=== PATIENT | male | born 1970 | race African-American/Black ===

== ENCOUNTER 2020-08-09 17:08 | Outpatient (REF) | payer MEDICAID, SELFPAY | END 2020-08-09 17:09 | disposition home or self-care (01) | LOC: HO.LAB 17:08 | PROVIDERS: Visit Provider Internal Medicine | DX: Z20.828 Contact with and (suspected) exposure to other viral communicable diseases (principal) | CPT/HCPCS: C9803; U0003 ==

== ENCOUNTER 2022-07-08 18:57 | Emergency (ER) | payer MEDICAID, SELFPAY ==
[2022-07-08 19:04] VITALS: BP 152/92; PULSE 90; RESP 16; TEMP 37; O2SAT 99; BMI 24.0
[2022-07-08 22:20] VITALS: BP 173/106; PULSE 77; RESP 20; TEMP 36.9; O2SAT 97
[2022-07-08] MEDS: Ketorolac Tromethamine 30 MG/ML VIAL IM (22:20)
[2022-07-08] MEDS: predniSONE 20 MG TABLET 60 MG PO (22:20)
--- NOTE | 2022-07-08 22:22 | ED.GENADULT ---
HPI - General Adult General Chief complaint: Back Pain/Injury Stated complaint: lower back pain Time Seen by Provider: 07/08/22 21:29 Source: patient Mode of arrival: ambulatory Limitations: no limitations History of Present Illness HPI narrative: 52-year-old male presents to ED for lower back pain radiating down left buttock left leg. Patient states pain on range of motion. Patient denies any trauma, nausea, vomiting, flank pain, abdominal pain, dysuria, hematuria from testicular pain, penile discharge, or penile lesions. Related Data Previous Rx's Medication Instructions Recorded cyclobenzaprine 10 mg tablet 10 mg PO TID PRN muscle spasm 7 07/08/22 days #21 tabs ketorolac 10 mg tablet 10 mg PO QID PRN pain 5 days #20 07/08/22 tabs prednisone 20 mg tablet 40 mg PO DAILY 5 days #10 tabs 07/08/22 Allergies Allergy/AdvReac Type Severity Reaction Status Date / Time No Known Allergies Allergy Verified 07/08/22 19:04 Review of Systems Review of Systems: Low back pain Yes all other systems are reviewed and are negative FOR[facility]LY [facility] Social History Social History Advance Directives: No Advance Directives Information Provided: No Physical Exam ED Vital Signs: Vital Signs - 24 hr 07/08/22 19:04 07/08/22 22:20 07/08/22 22:50 Temperature 98.6 F 98.5 F Pulse Rate 90 77 81 Respiratory Rate 16 20 12 Blood Pressure 152/92 H 173/106 H 160/97 H Pulse Oximetry 99 97 Oxygen Delivery Method Room Air Room Air BMI result Body Mass Index 24.0 Const General: cooperative, healthy appearing, comfortable, no acute distress, well developed, alert, awake and Physically active Orientation/consciousness: patient oriented x3 HENMT Head: Yes normal to inspection, Yes No palpable skull fracture present, Yes normocephalic, Yes atraumatic and No abrasion Eyes General: appearance normal, both eyes and all related structures Neck Neck: Yes normal visual inspection, Yes full ROM, Yes no lymphadenopathy, Yes no meningeal signs, Yes trachea midline, Yes supple, No anterior neck swelling and No tender Chest Chest palpation & inspection: normal inspection of the chest and normal palpation of entire chest wall Resp Effort & Inspection: normal respiratory effort and able to speak in complete sentences Cardio Jugular venous distension: no JVD Heart sounds: S1 normal heart sound present and S2 normal heart sound present GI Inspection: Yes normal to inspection and No abdominal wall ecchymosis Palpation (GI): Soft to palpation, not firm, nontender, no guarding and not rigid General: No CVA tenderness and Yes no CVA tenderness Back/Spine/Pelvis Back: no CVA tenderness, No CVA tenderness and No back tenderness Back/spine/pelvis image: 1. Tenderness on palpation. Negative for any gluteal abscess or ecchymosis or cellulitis. Pain radiating down left leg Skin General skin exam: no rashes or lesions noted and elasticity normal Neuro General: patient oriented x3, gait normal, tone normal, no meningeal signs and CN's II-XI intact bilaterally Cranial nerves: Yes CN's II-XII intact bilaterally Extrem General: Yes normal to inspection and Yes full ROM Psych Appearance: grossly normal, well kempt and not disheveled Course Course Course Narrative: Back pain. Reevaluation(s) Reevaluation #1: Negative for any spine tenderness. Has a sciatica will discharge with pain meds. Blood pressure elevated patient did not takes hypertensive meds today. patient informed he should be compliant with hypertensive meds to prevent stroke, VA, and kidney failure. Negative for any neuro deficits patient is safe for discharge Time: 22:32 Medical Decision Making MDM Narrative Medical decision making narrative: Sciatica Discharge Plan Discharge Clinical Impression: Sciatica Patient Disposition: Home, Self-Care Instructions: Sciatica (ED), Back Pain (ED) Additional Instructions: Return to ED for any urinary/bowel incontinence, abdominal pain, nausea, vomiting, fever, chills, severe back pain, inability to walk, or any other concerning symptoms. Please follow-up with primary care provider. Prescriptions: New ketorolac 10 mg tablet 10 mg PO QID PRN (Reason: pain) 5 Days Qty: 20 0RF Rx Instructions: received 30MG Im in the ED prednisone 20 mg tablet 40 mg PO DAILY 5 Days Qty: 10 0RF cyclobenzaprine 10 mg tablet 10 mg PO TID PRN (Reason: muscle spasm) 7 Days Qty: 21 0RF Rx Instructions: side effect is drowsiness. Do not take at work or while driving. Stand Alone Forms: Work/School Release Interventions: ED Discharge Assessment Last Done: 07/08/22 22:51 Discharge Date/Time: 07/08/22 22:52 Print Language: Romanian
--- NOTE | 2022-07-08 22:26 | PC.NURSE ---
Pt aox4. Breaths are even and unlabored. Elevated BP noted 180/110. Pt reports not taking BP medication today. Reports no other symptoms besides low back pain, 07/01. No apparent distress noted. MLP aware.
[2022-07-08] MEDS: lisinopriL 5 MG TABLET PO (22:30)
[2022-07-08 22:50] VITALS: BP 160/97; PULSE 81; RESP 12
--- NOTE | 2022-07-08 22:50 | PC.NURSE ---
Pt aox4. Breaths are even and unlabored. Improved BP: 160/97 after being medicated. No apparent distress noted. Reports low back pain, 07/01. Discharge instructions provided. Pt verbalizes understanding.
== END 2022-07-08 22:52 | disposition home or self-care (01) ==
PROVIDERS: Emergency Provider Internal Medicine
DX: M54.42 Lumbago with sciatica, left side (principal); I10 Essential (primary) hypertension; Z79.899 Other long term (current) drug therapy
CPT/HCPCS: 96372; 99284; J1885

== ENCOUNTER 2023-06-16 08:48 | Outpatient (REF) | payer MEDICAID, SELFPAY ==
[2023-06-16 12:15] LABS: Estimated Average Glucose 88 mg/dL; Hemoglobin A1c % 4.7 % (<6.0)
[2023-06-16 12:33] LABS: Cholesterol 176 mg/dL (<200); HDL Cholesterol 39 mg/dL (>40); LDL Cholesterol Calculated 118 mg/dL (<100); Triglycerides 95 mg/dL (<150)
[2023-06-16 12:42] LABS: Basophils Percent Auto 0.7 % (0-2); Eosinophils Absolute Auto 0.1 X10*3/uL (0.0-0.4); Eosinophils Percent Auto 2.2 % (0-4); Hematocrit 44.6 % (42.0-52.0); Hemoglobin 14.5 g/dl (14.0-18.0); Imm Gran Abs Auto 0.02 X10*3/uL (0.00-0.03); Imm Gran Pct Auto 0.3 % (0.0-0.4); Lymphocytes Absolute Auto 1.9 X10*3/uL (1.2-4.9); Lymphocytes Percent Auto 31.3 % (20-40); MANUAL DIFF FLAG SCAN; Mean Corpuscular HGB Conc 32.5 g/dl (31.0-36.0); Mean Corpuscular Hemoglobin 31.1 pg (27.0-33.0); Mean Corpuscular Volume 95.7 fL (80.0-98.0); Monocytes Absolute Auto 0.6 X10*3/uL (0.1-1.2); Monocytes Percent Auto 9.5 % (2-11); Neutrophils Absolute Auto 3.4 x10*3/uL (2.0-8.3); PLT CLUMP 1; Red Blood Count 4.66 X10*6/uL (4.60-5.80); Red Cell Distribution Width 12.1 % (11.0-16.0); SCAN SMEAR FLAG 1
[2023-06-16 12:58] LABS: Alanine Aminotransferase 22 U/L (0-40); Albumin Level 4.4 g/dL (3.5-5.0); Alkaline Phosphatase 58 U/L (39-117); Anion Gap 16 (12-20); Aspartate Amino Transferase 29 U/L (5-37); Bilirubin Total 0.5 mg/dL (0.0-1.0); Blood Urea Nitrogen 12 mg/dL (9-16); Calcium 9.6 mg/dL (8.4-10.2); Carbon Dioxide 23 mmol/L (22-29); Chloride 105 mmol/L (96-108); Estimated Glomerular Filt Rate > 60; Glucose Random 97 mg/dL (60-115); Potassium 3.8 mmol/L (3.3-5.1); Sodium 140 mmol/L (135-145); Total Protein 8.2 g/dL (6.5-8.0)
[2023-06-16 13:01] LABS: TSH reflex Free T4 2.03 uIU/mL (0.32-4.0); Vitamin D 25-OH Total 38.1 ng/mL (>30)
[2023-06-16 13:37] LABS: Platelet Count 225 X10*3/uL (160-400)
[2023-06-16 13:38] LABS: SLIDE REVIEW VERIFIED
[2023-06-16 13:52] LABS: Reflex LDLD? No
[2023-06-16 14:20] LABS: CT PCR NOT DETECTED (Not Detect.); NG PCR NOT DETECTED (Not Detect.)
[2023-06-17 03:44] LABS: Syphilis Screen Nonreactive (Nonreactive)
[2023-06-17 05:30] LABS: HBS Num1 4.36 mIU/mL (0-7.99); ~HepC Num1 0.36 S/CO (0.00-0.79); ~Hepatitis B Surface Antibody NONREACTIVE (Nonreactive); ~Hepatitis C Antibody Nonreactive (Nonreactive)
[2023-06-17 10:09] LABS: Absolute CD3 Count 1205 cells/uL (840-3060); Absolute CD4 Count 436 cells/uL (490-1740); Absolute CD8 Count 758 cells/uL (180-1170); Absolute Lymphocytes 2155 cells/uL (850-3900); CD4 CD8 Ratio 0.58 (0.86-5.00); Percent CD3 Cells 56 % (57-85); Percent CD4 Cells 20 % (30-61); Percent CD8 Cells 35 % (12-42)
[2023-06-17 13:19] LABS: HIV RNA PCR Qn Copies 90 copies/mL (NOT DETECTED); HIV RNA PCR Qn Log Copies 1.95 (NOT DETECTED)
[2023-06-18 19:38] LABS: TS Negative Control Passed; TS Panel A 1; TS Panel B 4; TS Positive Control Passed; TSpotTB Negative (Negative)
== END 2023-06-16 08:49 | disposition home or self-care (01) ==
LOC: HO.HHCL 08:48
PROVIDERS: Visit Provider Internal Medicine
DX: Z11.1 Encounter for screening for respiratory tuberculosis (principal); Z11.3 Encounter for screening for infections with a predominantly sexual mode of transmission; B20 Human immunodeficiency virus [HIV] disease
CPT/HCPCS: 0353U; 80053; 80061; 82306; 83036; 84443; 85025; 86359; 86360; 86481; 86706; 86780; 86803; 87536

== ENCOUNTER 2023-12-09 09:07 | Outpatient (REF) | payer MEDICAID, SELFPAY ==
[2023-12-09 11:25] LABS: MANUAL DIFF FLAG NO
[2023-12-09 11:35] LABS: Basophils Percent Auto 0.7 % (0-2); Eosinophils Absolute Auto 0.1 X10*3/uL (0.0-0.4); Eosinophils Percent Auto 1.4 % (0-4); Hematocrit 48.3 % (42.0-52.0); Hemoglobin 15.7 g/dl (14.0-18.0); Imm Gran Abs Auto 0.02 X10*3/uL (0.00-0.03); Imm Gran Pct Auto 0.4 % (0.0-0.4); Lymphocytes Absolute Auto 1.8 X10*3/uL (1.2-4.9); Lymphocytes Percent Auto 31.2 % (20-40); Mean Corpuscular HGB Conc 32.5 g/dl (31.0-36.0); Mean Corpuscular Hemoglobin 30.9 pg (27.0-33.0); Mean Corpuscular Volume 95.1 fL (80.0-98.0); Mean Platelet Volume 10.8 fL (9.4-12.4); Monocytes Absolute Auto 0.6 X10*3/uL (0.1-1.2); Neutrophils Absolute Auto 3.2 x10*3/uL (2.0-8.3); Neutrophils Percent Auto 56.3 % (45-73); Platelet Count 266 X10*3/uL (160-400); Red Blood Count 5.08 X10*6/uL (4.60-5.80); Red Cell Distribution Width 11.7 % (11.0-16.0); White Blood Count 5.7 X10*3/uL (4.8-10.8)
[2023-12-09 12:12] LABS: Alanine Aminotransferase 23 U/L (0-40); Albumin Level 4.7 g/dL (3.5-5.0); Alkaline Phosphatase 66 U/L (39-117); Anion Gap 13 (12-20); Aspartate Amino Transferase 24 U/L (5-37); Bilirubin Total 0.6 mg/dL (0.0-1.0); Blood Urea Nitrogen 14 mg/dL (9-16); Calcium 10.2 mg/dL (8.4-10.2); Carbon Dioxide 29 mmol/L (22-29); Chloride 102 mmol/L (96-108); Estimated Glomerular Filt Rate > 60; Glucose Random 95 mg/dL (60-115); Potassium 4.5 mmol/L (3.3-5.1); Sodium 139 mmol/L (135-145); Total Protein 9.4 g/dL (6.5-8.0)
[2023-12-10 12:54] LABS: Absolute CD3 Count 967 cells/uL (840-3060); Absolute CD4 Count 356 cells/uL (490-1740); Absolute CD8 Count 604 cells/uL (180-1170); Absolute Lymphocytes 1840 cells/uL (850-3900); CD4 CD8 Ratio 0.59 (0.86-5.00); Percent CD3 Cells 53 % (57-85); Percent CD4 Cells 19 % (30-61); Percent CD8 Cells 33 % (12-42)
[2023-12-13 07:09] LABS: HIV RNA PCR Qn Copies 117 copies/mL (NOT DETECTED); HIV RNA PCR Qn Log Copies 2.07 (NOT DETECTED)
== END 2023-12-09 09:08 | disposition home or self-care (01) ==
LOC: HO.HHCL 09:07
PROVIDERS: Visit Provider Internal Medicine
DX: B20 Human immunodeficiency virus [HIV] disease (principal)
CPT/HCPCS: 36415; 80053; 85025; 86359; 86360; 87536

== ENCOUNTER 2024-07-15 08:14 | Outpatient (REF) | payer MEDICAID, SELFPAY ==
[2024-07-15 11:12] LABS: Hematocrit 40.7 % (42.0-52.0); Hemoglobin 13.6 g/dl (14.0-18.0); Mean Corpuscular HGB Conc 33.4 g/dl (31.0-36.0); Mean Corpuscular Hemoglobin 31.6 pg (27.0-33.0); Mean Corpuscular Volume 94.4 fL (80.0-98.0); Mean Platelet Volume 11.2 fL (9.4-12.4); Platelet Count 232 X10*3/uL (160-400); Red Blood Count 4.31 X10*6/uL (4.60-5.80); Red Cell Distribution Width 12.2 % (11.0-16.0); White Blood Count 7.1 X10*3/uL (4.8-10.8)
[2024-07-15 11:29] LABS: Alanine Aminotransferase 27 U/L (0-40); Albumin Level 4.2 g/dL (3.5-5.0); Alkaline Phosphatase 55 U/L (39-117); Anion Gap 12 (12-20); Aspartate Amino Transferase 30 U/L (5-37); Bilirubin Direct 0.2 mg/dL (0.0-0.5); Bilirubin Total 0.9 mg/dL (0.0-1.0); Blood Urea Nitrogen 14 mg/dL (9-16); Calcium 9.4 mg/dL (8.4-10.2); Carbon Dioxide 27 mmol/L (22-29); Chloride 105 mmol/L (96-108); Cholesterol 208 mg/dL (<200); Estimated Glomerular Filt Rate > 60; Glucose Random 101 mg/dL (60-115); HDL Cholesterol 39 mg/dL (>40); LDL Cholesterol Calculated 139 mg/dL (<100); Potassium 4.4 mmol/L (3.3-5.1); Sodium 140 mmol/L (135-145); Triglycerides 152 mg/dL (<150)
[2024-07-15 11:36] LABS: Estimated Average Glucose 94 mg/dL; Hemoglobin A1C 97.8067 umol/L; Hemoglobin A1c % 4.9 % (<6.0)
[2024-07-15 11:45] LABS: Hepatitis A Antibody IgG Nonreactive (Nonreactive); ~Hepatitis A Antibody IgG 0.61 S/CO (0.00-0.99)
[2024-07-15 11:51] LABS: Creatinine Urine 187.61 mg/dL; Microalbum/Creatinine Ratio Ur 4.2 ug/mg cr (<30)
[2024-07-15 11:52] LABS: Free T4 (Free Thyroxine) 1.03 ng/dL (0.71-1.85); HBS Num1 4.35 mIU/mL (0-7.99); HBc Num1 0.25 S/CO (0.00-0.79); HBsAGNum1 0.32 S/CO (0.00-0.99); Hepatitis B Core Antibody Nonreactive (Nonreactive); Hepatitis B Surface Antigen Negative (Negative); Thyroid Stimulating Hormone 2.63 uIU/mL (0.32-4.0); Vitamin D 25-OH Total 39.3 ng/mL (>30); ~HepC Num1 0.43 S/CO (0.00-0.79); ~Hepatitis B Surface Antibody NONREACTIVE (Nonreactive); ~Hepatitis C Antibody Nonreactive (Nonreactive)
[2024-07-15 14:46] LABS: CT PCR NOT DETECTED (Not Detect.); NG PCR NOT DETECTED (Not Detect.)
[2024-07-16 14:08] LABS: HIV RNA PCR Qn Copies 182 copies/mL (NOT DETECTED); HIV RNA PCR Qn Log Copies 2.26 (NOT DETECTED)
[2024-07-16 20:13] LABS: RPR Rapid Plasma Reagin NON-REACTIVE (NON-REACTIVE)
[2024-07-18 03:24] LABS: TS Negative Control Passed; TS Panel A 2; TS Panel B 1; TS Positive Control Passed; TSpotTB Negative (Negative)
[2024-07-20 15:13] LABS: Absolute CD4 Count 376 cells/uL (490-1740); Absolute CD8 Count 513 cells/uL (180-1170); Absolute Lymphocytes 1601 cells/uL (850-3900); CD4 CD8 Ratio 0.73 (0.86-5.00); Percent CD4 Cells 24 % (30-61); Percent CD8 Cells 32 % (12-42)
== END 2024-07-15 08:15 | disposition home or self-care (01) ==
LOC: HO.HHCL 08:14
PROVIDERS: Visit Provider Family Medicine
DX: I10 Essential (primary) hypertension (principal); B20 Human immunodeficiency virus [HIV] disease
CPT/HCPCS: 36415; 80048; 80061; 80076; 82043; 82306; 82570; 83036; 84439; 84443; 85027; 86360; 86481; 86592; 86704; 86706; 86708; 86803; 87340; 87491; 87536; 87591

== ENCOUNTER 2024-08-04 13:52 | Outpatient (REF) | payer MEDICAID, SELFPAY ==
[2024-08-04 16:24] LABS: MANUAL DIFF FLAG NO
[2024-08-04 16:35] LABS: Basophils Percent Auto 0.6 % (0-2); Eosinophils Absolute Auto 0.1 X10*3/uL (0.0-0.4); Eosinophils Percent Auto 1.4 % (0-4); Hematocrit 42.7 % (42.0-52.0); Hemoglobin 13.8 g/dl (14.0-18.0); Imm Gran Abs Auto 0.03 X10*3/uL (0.00-0.03); Imm Gran Pct Auto 0.5 % (0.0-0.4); Lymphocytes Absolute Auto 1.8 X10*3/uL (1.2-4.9); Mean Corpuscular HGB Conc 32.3 g/dl (31.0-36.0); Mean Corpuscular Hemoglobin 30.9 pg (27.0-33.0); Mean Corpuscular Volume 95.7 fL (80.0-98.0); Monocytes Absolute Auto 0.6 X10*3/uL (0.1-1.2); Monocytes Percent Auto 8.6 % (2-11); Neutrophils Percent Auto 60.9 % (45-73); Platelet Count 252 X10*3/uL (160-400); Red Blood Count 4.46 X10*6/uL (4.60-5.80); Red Cell Distribution Width 12.2 % (11.0-16.0); White Blood Count 6.5 X10*3/uL (4.8-10.8)
[2024-08-04 17:09] LABS: Iron 77 mcg/dL (45-160); Percent Iron Saturation 29 % (15-50); Total Iron Binding Capacity 270 mcg/dL (228-428); Unsaturated Iron Binding 193 ug/dL
[2024-08-04 17:19] LABS: Ferritin 65 ng/mL (20-250)
[2024-08-04 17:32] LABS: Folate 11.9 ng/mL (> or = 4.0); Vitamin B12 484 pg/mL (200-900)
[2024-08-06 08:58] LABS: HIV RNA PCR Qn Copies 35 copies/mL (NOT DETECTED); HIV RNA PCR Qn Log Copies 1.54 (NOT DETECTED)
[2024-08-09 21:25] LABS: Absolute CD4 Count 425 cells/uL (490-1740); Absolute CD8 Count 677 cells/uL (180-1170); Absolute Lymphocytes 1857 cells/uL (850-3900); CD4 CD8 Ratio 0.63 (0.86-5.00); Percent CD4 Cells 23 % (30-61); Percent CD8 Cells 36 % (12-42)
== END 2024-08-04 13:53 | disposition home or self-care (01) ==
LOC: HO.HHCL 13:52
PROVIDERS: Visit Provider Family Medicine
DX: D64.9 Anemia, unspecified (principal)
CPT/HCPCS: 36415; 82607; 82728; 82746; 83540; 85025; 86360; 87536

== ENCOUNTER 2025-01-07 08:04 | Outpatient (REF) | payer MEDICAID, SELFPAY ==
[2025-01-07 11:22] LABS: MANUAL DIFF FLAG NO
[2025-01-07 11:31] LABS: Basophils Absolute Auto 0.1 X10*3/uL (0.0-0.2); Basophils Percent Auto 0.9 % (0-2); Eosinophils Absolute Auto 0.5 X10*3/uL (0.0-0.4); Eosinophils Percent Auto 7.7 % (0-4); Hematocrit 40.7 % (42.0-52.0); Hemoglobin 13.3 g/dl (14.0-18.0); Imm Gran Abs Auto 0.02 X10*3/uL (0.00-0.03); Imm Gran Pct Auto 0.3 % (0.0-0.4); Lymphocytes Percent Auto 33.4 % (20-40); Mean Corpuscular HGB Conc 32.7 g/dl (31.0-36.0); Mean Corpuscular Hemoglobin 30.6 pg (27.0-33.0); Mean Corpuscular Volume 93.6 fL (80.0-98.0); Mean Platelet Volume 10.9 fL (9.4-12.4); Monocytes Absolute Auto 0.6 X10*3/uL (0.1-1.2); Monocytes Percent Auto 10.8 % (2-11); Neutrophils Absolute Auto 2.7 x10*3/uL (2.0-8.3); Neutrophils Percent Auto 46.9 % (45-73); Platelet Count 280 X10*3/uL (160-400); Red Blood Count 4.35 X10*6/uL (4.60-5.80); Red Cell Distribution Width 12.4 % (11.0-16.0); White Blood Count 5.8 X10*3/uL (4.8-10.8)
[2025-01-07 11:59] LABS: Prostate Specific Antigen 3.41 ng/mL (<0.05-4.0)
[2025-01-07 12:00] LABS: Alanine Aminotransferase 22 U/L (0-40); Albumin Level 4.2 g/dL (3.5-5.0); Anion Gap 10 (12-20); Aspartate Amino Transferase 30 U/L (5-37); Bilirubin Total 0.7 mg/dL (0.0-1.0); Blood Urea Nitrogen 13 mg/dL (9-16); Calcium 9.3 mg/dL (8.4-10.2); Carbon Dioxide 28 mmol/L (22-29); Chloride 105 mmol/L (96-108); Estimated Glomerular Filt Rate > 60; Glucose Random 87 mg/dL (60-115); Sodium 139 mmol/L (135-145)
[2025-01-07 19:45] LABS: Alkaline Phosphatase 53 U/L (39-117)
[2025-01-08 20:18] LABS: HIV RNA PCR Qn Copies 697 copies/mL (NOT DETECTED); HIV RNA PCR Qn Log Copies 2.84 (NOT DETECTED)
[2025-01-12 20:52] LABS: Absolute CD3 Count 1164 cells/uL (840-3060); Absolute CD4 Count 474 cells/uL (490-1740); Absolute CD8 Count 714 cells/uL (180-1170); Absolute Lymphocytes 2044 cells/uL (850-3900); CD4 CD8 Ratio 0.66 (0.86-5.00); Percent CD3 Cells 57 % (57-85); Percent CD4 Cells 23 % (30-61); Percent CD8 Cells 35 % (12-42)
== END 2025-01-07 08:05 | disposition home or self-care (01) ==
LOC: HO.HHCL 08:04
PROVIDERS: Visit Provider Internal Medicine
DX: B20 Human immunodeficiency virus [HIV] disease (principal)
CPT/HCPCS: 36415; 80053; 84153; 85025; 86359; 86360; 87536

== ENCOUNTER 2025-02-10 15:04 | Outpatient (REF) | payer MEDICAID, SELFPAY ==
[2025-02-12 14:13] LABS: HIV RNA PCR Qn Copies 161 copies/mL (NOT DETECTED); HIV RNA PCR Qn Log Copies 2.21 (NOT DETECTED)
[2025-02-18 17:24] LABS: HIV 1 Integrase Proviral DNA DETECTED; HIV 1 PR RT Proviral DNA DETECTED
== END 2025-02-10 15:05 | disposition home or self-care (01) ==
LOC: HO.HHCL 15:04
PROVIDERS: Visit Provider Internal Medicine
DX: B20 Human immunodeficiency virus [HIV] disease (principal)
CPT/HCPCS: 36415; 87536; 87900; 87901; 87906

== ENCOUNTER 2025-06-20 08:07 | Outpatient (REF) | payer OTHER, SELFPAY ==
[2025-06-20 11:35] LABS: Hematocrit 42.2 % (42.0-52.0); Hemoglobin 13.8 g/dl (14.0-18.0); Mean Corpuscular HGB Conc 32.7 g/dl (31.0-36.0); Mean Corpuscular Hemoglobin 31.1 pg (27.0-33.0); Mean Corpuscular Volume 95.0 fL (80.0-98.0); NRBC Abs Auto 0.000 X10*3/uL (0.0-0.012); NRBC Pct Auto 0.0 /100WBC (0.0-0.2); Platelet Count 238 X10*3/uL (160-400); Red Blood Count 4.44 X10*6/uL (4.60-5.80); White Blood Count 5.9 X10*3/uL (4.8-10.8)
[2025-06-20 11:59] LABS: Alanine Aminotransferase 30 U/L (0-40); Albumin Level 4.6 g/dL (3.5-5.0); Alkaline Phosphatase 60 U/L (39-117); Anion Gap 12 (12-20); Aspartate Amino Transferase 31 U/L (5-37); Blood Urea Nitrogen 13 mg/dL (9-16); Calcium 9.1 mg/dL (8.4-10.2); Carbon Dioxide 27 mmol/L (22-29); Chloride 106 mmol/L (96-108); Cholesterol 236 mg/dL (<200); Estimated Glomerular Filt Rate > 60; HDL Cholesterol 35 mg/dL (>40); Potassium 3.9 mmol/L (3.3-5.1); Sodium 141 mmol/L (135-145); Total Protein 8.3 g/dL (6.5-8.0); Triglycerides 132 mg/dL (<150)
[2025-06-20 12:04] LABS: Free T4 (Free Thyroxine) 1.17 ng/dL (0.71-1.85); Thyroid Stimulating Hormone 2.20 uIU/mL (0.32-4.0)
[2025-06-20 12:20] LABS: HBS Num1 2.73 mIU/mL (0-7.99); HBc Num1 0.18 S/CO (0.00-0.79); HBsAGNum1 0.30 S/CO (0.00-0.99); HIV Num 1 529.75 S/CO (0.00-0.99); Hepatitis B Surface Antigen Negative (Negative); ~HepC Num1 0.32 S/CO (0.00-0.79); ~Hepatitis B Surface Antibody NONREACTIVE (Nonreactive); ~Hepatitis C Antibody Nonreactive (Nonreactive)
[2025-06-20 12:26] LABS: Microalbum/Creatinine Ratio Ur 3.5 ug/mg cr (<30)
[2025-06-20 13:48] LABS: HIV Num 3 527.11 S/CO
[2025-06-23 03:12] LABS: TS Negative Control Passed; TS Panel A 0; TS Panel B 1; TS Positive Control Passed; TSpotTB Negative (Negative)
[2025-06-23 17:48] LABS: HIV 1 Antibody POSITIVE (NEGATIVE); HIV 2 Antibody NEGATIVE (NEGATIVE)
[2025-06-24 05:41] LABS: ~Hepatitis A Antibody IgG 0.53 S/CO (0.00-0.99)
== END 2025-06-20 08:08 | disposition home or self-care (01) ==
LOC: HO.HHCL 08:07
PROVIDERS: PCP Family Medicine; Visit Provider Family Medicine
DX: Z11.1 Encounter for screening for respiratory tuberculosis (principal); Z11.3 Encounter for screening for infections with a predominantly sexual mode of transmission; Z11.59 Encounter for screening for other viral diseases; Z21 Asymptomatic human immunodeficiency virus [HIV] infection status; I10 Essential (primary) hypertension
CPT/HCPCS: 36415; 80048; 80061; 80076; 82043; 82306; 82570; 83036; 84439; 84443; 85027; 86481; 86592; 86701; 86702; 86704; 86706; 86708; 86803; 87340; 87389

== ENCOUNTER 2025-08-01 08:17 | Outpatient (REF) | payer OTHER, SELFPAY ==
[2025-08-03 16:02] LABS: HIV RNA PCR Qn Copies 254 copies/mL (NOT DETECTED); HIV RNA PCR Qn Log Copies 2.40 (NOT DETECTED)
[2025-08-06 16:24] LABS: Absolute CD3 Count 1152 cells/uL (840-3060); Absolute CD8 Count 690 cells/uL (180-1170); Percent CD3 Cells 54 % (57-85); Percent CD8 Cells 32 % (12-42)
== END 2025-08-01 08:18 | disposition home or self-care (01) ==
LOC: HO.HHCL 08:17
PROVIDERS: Internal Medicine; PCP Family Medicine; Visit Provider Family Medicine
DX: Z21 Asymptomatic human immunodeficiency virus [HIV] infection status (principal)
CPT/HCPCS: 36415; 86359; 86360; 87536